=== PATIENT | female | born 1960 | race Two or more races ===

== ENCOUNTER 2024-07-10 16:04 | Emergency (ER) | payer MEDICARE, OTHER ==
[~2024-07-10] VITALS: Ht 167.6 cm; Wt 69.4 kg
[~2024-07-10 16:04] MED LIST: ACE3T PO; ALBU108A5 IN; AZIT-185 PO; PRED20TA2 PO
--- NOTE | 2024-07-10 16:32 | ED.PDOC ---
History of Present Illness HPI Comments 64 year old female presents to the ED with a chief complaint of elevated blood pressure onset today (07/10/24). Patient states she check BP at home this morning 195/95, took both hypertension medication, has not improved BP. Patient is also experiencing headache, nausea. PMHx COPD, sciatica, HTN. Denies head injury, fall, chest pain, shortness of breath, dizziness, blurry vision, vomiting, diarrhea, fever. No other symptoms or modifying factors present at this time. Chief Complaint: High Blood Pressure Time Seen by MD: 16:23 Primary Care Provider: out of area Reviewed Notes: Nurses Notes, Medications, Allergies Allergies: Coded Allergies: NO KNOWN ALLERGIES (Unverified , 07/15/23) Home Meds Active Scripts Acetaminophen W/ Codeine (Tylenol W/Cod #3) 1 Tab Tb, 1 TAB PO Q6HP PRN, #20 TAB Prov:SHAHNAZ CORTES PAC 07/19/23 Prednisone (Prednisone) 20 Mg Tab, 60 MG PO DAILY, #15 MG Prov:RICCI SORIANO 07/15/23 Albuterol Sulfate (Albuterol Sulfate Hfa) 108 Mcg/Act Aer, 108 MCG IN TIDBM, #90 AER Prov:RICCI SORIANO 07/15/23 Azithromycin (ZITHROMAX TABLET) 250 Mg Tb, 250 MG PO DAILY, #6 TAB Prov:RICCI SORIANO 07/15/23 Information Source: Patient Mode of Arrival: Ambulatory Severity: Moderate Timing: Hours Duration: Since onset Prehospital treatment: None Past Medical History PAST MEDICAL HISTORY: Asthma, COPD, HTN Past Medical History (Other): sciatica Surgical History (Other): carpal tunnel surgery 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 Family History Family History: Family hx of heart rachelle, Family hx of stroke Social History Smoker: Cigarettes Alcohol: Occasionally Drugs: Denies Drug Use Lives In: Home Constitutional: denies: chills, diaphoresis, fatigue, fever, malaise, sweats, weakness, others EENTM: denies: blurred vision, double vision, ear bleeding, ear discharge, ear drainage, ear pain, ear ringing, eye pain, eye redness, hearing loss, mouth pa in, mouth swelling, nasal discharge, nose bleeding, nose congestion, nose pain, photophobia, tearing, throat pain, throat swelling, voice changes, others Respiratory: denies: cough, hemoptysis, orthopnea, SOB at rest, shortness of breath, SOB with excertion, stridor, wheezing, others Cardiovascular: reports: others (elevated BP); denies: chest pain, dizzy spells, diaphoresis, Dyspnea on exertion, edema, irregular heart beat, left arm pain, lightheadedness, palpitations, PND, syncope Gastrointestinal: reports: nausea; denies: abdomen distended, abdominal pain, blood streaked bowels, constipated, diarrhea, dysphagia, difficulty swallowing, hematemesis, melena, poor appetite, poor fluid intake, rectal bleeding, rectal pain, vomiting, others Genitourinary: denies: abnormal vagina bleeding, burning, dyspareunia, dysuria, flank pain, frequency, hematuria, incontinence, pain, , vagina discharge, urgency, others Neurological: reports: headache; denies: dizziness, fainting, left sided numbness, left sided weakness, numbness, paresthesia, pre-existing deficit, right sided numbness, right sided weakness, seizure, speech problems, tingling, tremors, weakness, others Musculoskeletal: denies: back pain, gout, joint pain, joint swelling, muscle pain, muscle stiffness, neck pain, others Integumetry: denies: bruises, change in color, change in hair/nails, dryness, laceration, lesions, lumps, rash, wounds, others Allergic/Immunocompromised: denies: Difficulty Healing, Frequent Infections, Hives, Itching, others Hematologic/Lymphatic: denies: anemia, blood clots, easy bleeding, easy bruising, swollen glands, others Endocrine: denies: excessive hunger, excessive sweating, excessive thirst, excessive urination, flushing, intolerance to cold, intolerance to heat, unexplained weight gain, unexplained weight loss, others Psychiatric: denies: anxiety, bipolar disorder, depression, hopeless, panic disorder, schizophrenia, sleepless, suicidal, others All Other Systems: Reviewed and Negative Physical Exam General Appearance: Moderate Distress HEENT: Normal ENT Inspection, Pharynx Normal, TMs Normal Neck: Full Range of Motion, Non-Tender, Normal, Normal Inspection Respiratory: Chest Non-Tender, Lungs Clear, No Accessory Muscle Use, No Respira tory Distress, Normal Breath Sounds Cardiovascular: No Edema, No JVD, No Murmur, No Gallop, Normal Peripheral Pulses, Regular Rate/Rhythm Breast Exam: Deferred Gastrointestinal: No Organomegaly, Non Tender, No Pulsatile Mass, Normal Bowel Sounds, Soft Genitalia: Deferred Pelvic: Deferred Rectal: Deferred Extremities: No calf tenderness, Normal capillary refill, Normal inspection, Normal range of motion, Non-tender, No pedal edema Musculoskeletal : Apperance: Normal Neurologic: Alert, valve technician II-XII nml as Tested, No Motor Deficits, Normal Affect, Normal Mood, No Sensory Deficits Cerebellar Function: Normal Reflexes: Normal Skin: Dry, Normal Color, Warm Lymphatic: No Adenopathy Was a procedure done? Was a procedure done?: No Differential Dx Considerations may include: Acute coronary syndrome, hypertensive urgency, accelerated hypertension X-Ray, Labs, Meds, VS Vital Signs Date Time Temp Pulse Resp B/P (MAP) Pulse Ox O2 Delivery O2 Flow Rate FiO2 07/10/24 18:26 68 18 130/75 (93) 97 07/10/24 18:25 130/75 07/10/24 17:12 98.2 70 18 157/110 (126) 96 98.2 07/10/24 17:12 70 18 96 Room Air 07/10/24 17:10 157/110 07/10/24 16:16 98.3 74 16 179/95 (123) 100 98.3 Lab Test 07/10/24 17:15 Range/Units White Blood Count 8.6 4.4-10.8 10^3/uL Red Blood Count 4.22 4.0-5.20 10^6/uL Hemoglobin 12.9 12.2-16.2 g/dL Hematocrit 37.9 36.0-46.0 % Mean Corpuscular Volume 89.7 80.0-100.0 fL Mean Corpuscular Hemoglobin 30.5 28.0-32.0 pg Mean Corpuscular Hemoglobin Concent 34.0 32.0-36.0 g/dL Red Cell Distribution Width 14.3 11.8-14.3 % Platelet Count 264 140-450 10^3/uL Mean Platelet Volume 7.5 6.9-10.8 fL Neutrophils (%) (Auto) 61.7 37.0-80.0 % Lymphocytes (%) (Auto) 31.2 10.0-50.0 % Monocytes (%) (Auto) 5.2 0.0-12.0 % Eosinophils (%) (Auto) 0.8 0.0-7.0 % Basophils (%) (Auto) 1.1 0.0-2.0 % Neutrophils # (Auto) 5.3 1.6-8.6 10 ^3/uL Lymphocytes # (Auto) 2.7 0.4-5.4 10 ^3/uL Monocytes # (Auto) 0.4 0-1.3 10 ^3/uL Eosinophils # (Auto) 0.1 0-0.8 10 ^3/uL Basophils # (Auto) 0.1 0-0.2 10 ^3/uL Nucleated Red Blood Cells 0.2 % Sodium Level 139 136-145 mmol/L Potassium Level 3.7 3.5-5.1 mmol/L Chloride Level 104 98-107 mmol/L Carbon Dioxide Level 24 20-31 mmol/L Anion Gap 11 5-15 Blood Urea Nitrogen 10 9-23 mg/dL Creatinine 0.72 0.550-1.02 mg/dL Glomerular Filtration Rate Calc 93 >90 mL/min BUN/Creatinine Ratio 13.9 10.0-20.0 Serum Glucose 108 H 74-106 mg/dL Calcium Level 9.7 8.7-10.4 mg/dL Current Medications Medications (Trade) Dose Ordered Sig/Afsaneh Route Start Time Stop Time Status Last Admin Clonidine HCl (Catapres Tablet) 0.2 mg ONCE ONCE PO 07/10/24 16:30 07/10/24 16:31 DC 07/10/24 17:10 PROCEDURE(s): HWOCT - HEAD WITHOUT CONTRAST IMPRESSION: 1. No acute intracranial hemorrhage. 2. Questionable tip mastoiditis on the left 3. Paranasal sinuses appear normal HS:Y The patient's CBC and chemistry panel is within normal limits The patient was given clonidine 0.2 mg by mouth The patient remained symptomatic The patient is being admitted with a diagnosis of accelerated hypertension An IV Hep-Lock was established. Images Reviewed?: Images reviewed and evaluated by me Time of 1ST Reevaluation: 16:55 Reevaluation 1ST: Unchanged Patient Education/Counseling: Diagnosis, Treatment, Prognosis Family Education/Counseling: No Family Present Departure 1 Departure Time of Disposition: 18:45 Impression: Primary Impression: Accelerated hypertension Disposition: 09 ADMITTED INPATIENT Admit to: Tele Condition: Fair Critical Care Note Critical Care Time?: No Stability Stability form required: Yes Unstable for transfer: Telemetry monitoring (Telemetry monitoring required), ED Physician Assesment (Clinical assesment) Heart Score Heart Score: Heart Score Response (Comments) Value History N/A 0 EKG N/A 0 Age N/A 0 Risk Factors N/A 0 Troponin N/A 0 Total 0 I personally scribed for CECELIA SÁNCHEZ MD ([email or web address]) on 07/10/24 at 16:32. Electronically submitted by Yolanda Severino ([email or web address]). I personally scribed for CECELIA SÁNCHEZ MD ([email or web address]) on 07/10/24 at 17:49. Electronically submitted by Yolanda Severino ([email or web address]). CECELIA SÁNCHEZ MD Jul 10, 2024 16:32
[2024-07-10] MEDS: cloNIDine HCL 0.1 MG TAB PO ONE (17:10)
--- NOTE | 2024-07-10 17:19 | DVH ---
EXAM: CT HEAD WITHOUT CONTRAST INDICATION: DUMONT TECHNIQUE: CT of the head without intravenous contrast. Radiation Dose Information: CT Dose: CTDI volume is 52.84 mGy. Dose-length product is 847.12 mGy*cm The dose indicators for CT are the volume Computed Tomography (CT) Dose Index (CTDIvol) and the Dose Length Product (DLP), and are measured in units of mGy and mGy-cm, respectively. These indicators are not patient dose, but values generated from the CT scanner acquisition factors. The report includes radiation exposure data for exposures received during this examination. COMPARISON: CT HEAD WITHOUT CONTRAST on DOS: 07/18/23 FINDINGS: There is no evidence of acute intracranial hemorrhage, extra-axial collection, mass effect, midline s hift, herniation or hydrocephalus. The ventricles, sulci and cisterns are age appropriate. Opacified air cell tip of the left mastoids correlate for possible tip mastoiditis on the left. The alas-white differentiation is intact. Patchy periventricular and subcortical white matter hypoattenuation is nonspecific but may be related to small vessel ischemic disease. The visualized paranasal sinuses and mastoid air cells are clear. The surrounding soft tissues and osseous structures are unremarkable. IMPRESSION: 1. No acute intracranial hemorrhage. 2. Questionable tip mastoiditis on the left 3. Paranasal sinuses appear normal HS:Y
[2024-07-10 17:50] LABS: Basophils # (auto) 0.1 10 ^3/uL (0-0.2); Basophils % (auto) 1.1 % (0.0-2.0); Eosinophils # (auto) 0.1 10 ^3/uL (0-0.8); Eosinophils % (auto) 0.8 % (0.0-7.0); Hematocrit 37.9 % (36.0-46.0); Hemoglobin 12.9 g/dL (12.2-16.2); Lymphocytes # (auto) 2.7 10 ^3/uL (0.4-5.4); Lymphocytes % (auto) 31.2 % (10.0-50.0); Mean Corpuscular Hemoglobin 30.5 pg (28.0-32.0); Mean Corpuscular Volume 89.7 fL (80.0-100.0); Monocytes # (auto) 0.4 10 ^3/uL (0-1.3); Monocytes % (auto) 5.2 % (0.0-12.0); Neutrophils # (auto) 5.3 10 ^3/uL (1.6-8.6); Neutrophils % (auto) 61.7 % (37.0-80.0); Nucleated Red Blood Cells % 0.2 %; Platelet Count (auto) 264 10^3/uL (140-450); Red Blood Cells 4.22 10^6/uL (4.0-5.20); Red Cell Distribution Width 14.3 % (11.8-14.3); White Blood Cell 8.6 10^3/uL (4.4-10.8)
[2024-07-10 18:03] LABS: Chloride 104 mmol/L (98-107); Potassium 3.7 mmol/L (3.5-5.1); Sodium 139 mmol/L (136-145)
[2024-07-10 18:04] LABS: Anion Gap 11 (5-15); Calcium 9.7 mg/dL (8.7-10.4); Carbon Dioxide 24 mmol/L (20-31)
[2024-07-10 18:09] LABS: BUN/Creatinine Ratio 13.9 (10.0-20.0); Blood Urea Nitrogen 10 mg/dL (9-23)
[2024-07-10 18:11] LABS: Glucose 108 mg/dL (74-106)
[2024-07-10 19:03] VITALS: PULSE 75; RESP 16; O2SAT 99
[2024-07-10] MEDS: hydrALAZINE HCL 20 MG/ML VL IV ONE (19:05)
[2024-07-10 19:18] VITALS: BP 130/73; PULSE 62; RESP 18; TEMP 98; O2SAT 98
== END 2024-07-10 19:26 | disposition home or self-care (01) ==
LOC: ER 16:04
DX: I10 Essential (primary) hypertension (principal); J44.9 Chronic obstructive pulmonary disease, unspecified; F17.210 Nicotine dependence, cigarettes, uncomplicated; Z79.899 Other long term (current) drug therapy; Z98.890 Other specified postprocedural states
CPT/HCPCS: 36415; 70450; 80048; 85025

== ENCOUNTER 2024-08-26 13:24 | Emergency (ER) | payer MEDICARE, OTHER ==
[~2024-08-26] VITALS: Ht 167.6 cm; Wt 67.2 kg
[2024-08-26 14:37] VITALS: BP 167/89; PULSE 69; RESP 16; TEMP 99.3; O2SAT 99
--- NOTE | 2024-08-26 14:46 | ED.PDOC ---
History of Present Illness HPI Comments A 64 YEAR OLD FEMALE PRESENTS TO THE ED WITH COMPLAINT OF LUMP OF BILATERAL WRISTS. PATIENT STATES SHE HAS HAD LUMPS ON HER BILATERAL WRIST FOR THE PAST 4 DAYS. PATIENT ALSO NOTES SHE HAS A HISTORY OF CARPAL TUNNEL SYNDROME. PATIENT DENIES FEVER, CHILLS, SHORTNESS OF BREATH, CHEST PAIN, ABDOMINAL PAIN, NAUSEA, VOMITING, HEADACHE, OR OTHER COMPLAINTS. NO OTHER SYMPTOMS OR MODIFYING FACTORS AT THIS TIME. PATIENT IS ALERT, ORIENTED X 4, AND HAS STEADY GAIT. Chief Complaint: Upper Extremity Time Seen by MD: 13:39 Primary Care Provider: out of area Reviewed Notes: Nurses Notes, Medications, Allergies Allergies: Coded Allergies: NO KNOWN ALLERGIES (Unverified , 07/15/23) Home Meds Active Scripts Acetaminophen W/ Codeine (Tylenol W/Cod #3) 1 Tab Tb, 1 TAB PO Q6HP PRN, #20 TAB Prov:SHAHNAZ CORTES PAC 07/19/23 Prednisone (Prednisone) 20 Mg Tab, 60 MG PO DAILY, #15 MG Prov:RICCI SORIANO 07/15/23 Albuterol Sulfate (Albuterol Sulfate Hfa) 108 Mcg/Act Aer, 108 MCG IN TIDBM, #90 AER Prov:RICCI SORIANO 07/15/23 Azithromycin (ZITHROMAX TABLET) 250 Mg Tb, 250 MG PO DAILY, #6 TAB Prov:RICCI SORIANO 07/15/23 Information Source: Patient Mode of Arrival: Ambulatory Severity: Mild Timing: Days Duration: Since onset, Days Prehospital treatment: None Medication Refill: For: Other (GANGLION CYST OF BILATERAL WRISTS) Past Medical History PAST MEDICAL HISTORY: Asthma, COPD, HTN Past Medical History (Other): CARPAL TUNNEL SYNDROME Surgical History: Denies all surgeries 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 Family History Family History: Reviewed,noncontributory to illness, Family hx of heart rachlele, Family hx of stroke Social History Smoker: Cigarettes Alcohol: Occasionally Drugs: Denies Drug Use Lives In: Home Constitutional: reports: others (ANXIOUS ); denies: chills, diaphoresis, fatigue, fever, malaise, sweats, weakness EENTM: denies: blurred vision, double vision, ear bleeding, ear discharge, ear drainage, ear pain, ear ringing, eye pain, eye redness, hearing loss, mouth pain, mouth swelling, nasal discharge, nose bleeding, nose congestion, nose pain, photophobia, tearing, throat pain, throat swelling, voice changes, others Respiratory: denies: cough, hemoptysis, orthopnea, SOB at rest, shortness of breath, SOB with excertion, stridor, wheezing, others Cardiovascular: denies: chest pain, dizzy spells, diaphoresis, Dyspnea on exertion, edema, irregular heart beat, left arm pain, lightheadedness, palpitations, PND, syncope, others Gastrointestinal: denies: abdomen distended, abdominal pain, blood streaked bowels, constipated, diarrhea, dysphagia, difficulty swallowing, hematemesis, melena, nausea, poor appetite, poor fluid intake, rectal bleeding, rectal pain, vomiting, others Genitourinary: denies: abnormal vagina bleeding, burning, dyspareunia, dysuria, flank pain, frequency, hematuria, incontinence, pain, , vagina discharge, urgency, others Neurological: denies: dizziness, fainting, headache, left sided numbness, left sided weakness, numbness, paresthesia, pre-existing deficit, right sided numbness, right sided weakness, seizure, speech problems, tingling, tremors, weakness, others Musculoskeletal: reports: others (LUMP OF BILATERAL WRIST); denies: back pain, gout, joint pain, joint swelling, muscle pain, muscle stiffness, neck pain Integumetry: denies: bruises, change in color, change in hair/nails, dryness, laceration, lesions, lumps, rash, wounds, others Allergic/Immunocompromised: denies: Difficulty Healing, Frequent Infections, Hives, Itching, others Hematologic/Lymphatic: denies: anemia, blood clots, easy bleeding, easy bruising, swollen glands, others Endocrine: denies: excessive hunger, excessive sweating, excessive thirst, excessive urination, flushing, intolerance to cold, intolerance to heat, unexp lained weight gain, unexplained weight loss, others Psychiatric: denies: anxiety, bipolar disorder, depression, hopeless, panic disorder, schizophrenia, sleepless, suicidal, others All Other Systems: Reviewed and Negative Physical Exam General Appearance: No Apparent Distress, Normal HEENT: Normal ENT Inspection, PERRL/EOMI, Pharynx Normal, TMs Normal Neck: Full Range of Motion, Non-Tender, Normal, Normal Inspection Respiratory: Chest Non-Tender, Lungs Clear, No Accessory Muscle Use, No Resp iratory Distress, Normal Breath Sounds Cardiovascular: No Edema, No JVD, No Murmur, No Gallop, Normal Peripheral Pulses, Regular Rate/Rhythm Breast Exam: Deferred Gastrointestinal: No Organomegaly, Non Tender, No Pulsatile Mass, Normal Bowel Sounds, Soft Genitalia: Deferred Pelvic: Deferred Rectal: Deferred Extremities: No calf tenderness, Normal capillary refill, Normal range of motion, Non-tender, No pedal edema, Other (TWO SMALL GANGLION CYST ON BILATERAL VOLAR WRIST, NO TENDERNESS AND SWELLING. ) Musculoskeletal : Apperance: Normal Neurologic: Alert, meter repairer II-XII nml as Tested, No Motor Deficits, Normal Affect, Normal Mood, No Sensory Deficits Cerebellar Function: Normal Reflexes: Normal Skin: Dry, Normal Color, Warm, Other (2CM GANGLION ON LEFT VOLAR CYST, 1CM GANGLION ON RIGHT VOLAR CYST, NO TENDERNESS AND SWELLING, NO INFECTION SIGNS. ) Peripheral Pulses: 2+ carotid (R), 2+ carotid (L), 2+ Radial (R), 2+ Radial (L) Lymphatic: No Adenopathy Was a procedure done? Was a procedure done?: No Differential Dx Considerations may include: GANGLION CYST, SOFT TISSUE INFECTION, CARPAL TUNNEL SYNDROME X-Ray, Labs, Meds, VS Vital Signs Date Time Temp Pulse Resp B/P (MAP) Pulse Ox O2 Delivery O2 Flow Rate FiO2 08/26/24 14:37 99.3 69 16 167/89 (115) 99 99.3 08/26/24 14:37 69 16 99 Room Air 08/26/24 13:33 99.3 69 16 167/89 (115) 99 99.3 X-Ray, Labs, Meds, VS Comment EXTERNAL MEDICAL RECORDS REVIEWED: [NONE] INDEPENDENT HISTORIANS: [NONE] SOCIAL DETERMINANTS OF HEALTH: [NONE] LABS ORDERED: NONE REVIEWED AND INTERPRETED RESULTS: NONE IMAGING ORDERED: NONE TREATMENTS ORDERED: NONE PROCEDURES PERFORMED: NONE CRITICAL CARE TIME: NONE I HAVE DISCUSSED THE PATIENT WITH THE ATTENDING PHYSICIAN DR. SÁNCHEZ AND HE AGREES WITH THE PATIENT'S PLAN OF CARE AND DISPOSITION. BASED ON HISTORY OF PRESENT ILLNESS, AND PHYSICAL EXAM, PATIENT WILL BE DISCHARGED HOME. SHARED DECISION MAKING: PATIENT INSTRUCTED TO FOLLOW UP WITH PRIMARY CARE PROVIDER IN 1-2 DAYS FOR RE-EVALUATION OF SYMPTOMS. PATIENT VERBALIZES UNDERSTANDING TO RETURN TO ED FOR NEW OR WORSENING SYMPTOMS OR IF FOLLOW UP WITH PCP CANNOT BE OBTAINED. PATIENT FEELS COMFORTABLE GOING HOME AT THIS TIME. ALL QUESTIONS ADDRESSED AT TIME OF DISCHARGE. Time of 1ST Reevaluation: 14:57 Reevaluation 1ST: Improved Patient Education/Counseling: Diagnosis, Treatment, Need For Follow Up Family Education/Counseling: Diagnosis, Treatment, Need For Follow Up Medical Screening: No EMC Exist At This Time Departure 1 Departure Time of Disposition: 15:00 Impression: Primary Impression: Ganglion cyst of both wrists Disposition: 01 HOME / SELF CARE / HOMELESS Condition: Stable Additional Instructions: FOLLOW-UP WITH PCP IN 1 TO 2 DAYS FOR REFERRAL TO [facility]. RETURN TO ED FOR ANY NEW OR WORSENING SYMPTOMS. Discharged With: Self Critical Care Note Critical Care Time?: No Stability Stability form required: No I personally scribed for RICCI SORIANO ([email or web address]) on 08/26/24 at 14:45. Electronically submitted by Florentin Boateng ([email or web address]). RICCI SORIANO August 26, 2024 14:45
== END 2024-08-26 14:55 | disposition home or self-care (01) ==
LOC: ER 13:24
DX: M67.432 Ganglion, left wrist (principal); M67.431 Ganglion, right wrist; I10 Essential (primary) hypertension; J44.9 Chronic obstructive pulmonary disease, unspecified; F17.210 Nicotine dependence, cigarettes, uncomplicated; Z79.52 Long term (current) use of systemic steroids; Z79.899 Other long term (current) drug therapy

== ENCOUNTER 2024-09-03 04:58 | Emergency (ER) | payer MEDICARE, OTHER ==
[~2024-09-03] VITALS: Ht 167.6 cm; Wt 69.3 kg
--- NOTE | 2024-09-03 05:18 | ED.PDOC ---
HPI Allergic reaction HPI Comments 64-year-old female who came to ER for allergic reaction. Patient states she noted pruritic generalized maculopapular rashes that started yesterday morning, which progressively worsened despite taking Benadryl. She denies any throat pain, throat swelling, shortness a breath or wheezing. Patient unsure where she got the rash is from, possibly from yardwork the day before, no one at home has similar symptoms. No similar rash in the past. Chief Complaint: Allergic Reaction Time Seen by MD: 05:16 Primary Care Provider: out of area Reviewed Notes: Nurses Notes Allergies: Coded Allergies: Shellfish Allergy (Verified Allergy, Severe, 09/03/24) Home Meds Active Scripts Diphenhydramine Hcl (Benadryl Allergy) 25 Mg Tab, 25 MG PO TIDPRN PRN for 5 Days, #15 TAB Prov:ADAM DIAZ MD 09/03/24 Loratadine (Claritin) 10 Mg Tab, 10 MG PO DAILY for 7 Days, #7 TAB Prov:ADAM DIAZ MD 09/03/24 Prednisone (Prednisone) 20 Mg Tab, 20 MG PO DAILY for 4 Days, #4 MG Start on 09/04/2024 Prov:ADAM DIAZ MD 09/03/24 Acetaminophen W/ Codeine (Tylenol W/Cod #3) 1 Tab Tb, 1 TAB PO Q6HP PRN, #20 TAB Prov:SHAHNAZ CORTES PAC 07/19/23 Albuterol Sulfate (Albuterol Sulfate Hfa) 108 Mcg/Act Aer, 108 MCG IN TIDBM, #90 AER Prov:RICCI SORIANO 07/15/23 Azithromycin (ZITHROMAX TABLET) 250 Mg Tb, 250 MG PO DAILY, #6 TAB Prov:RICCI SORIANO 07/15/23 Information Source: Patient Mode of Arrival: Ambulatory Severity: Moderate Rash: Moderate SOB: None Difficulty swallowing: None Pruritus: Moderate Timing: Hours Duration: Since onset Prehospital treatment: Treatment (Benadryl) Location: Generalized Exposed to: Unknown Developed: Pruritus, Rash History of: Urticaria Modyifying Factors: Diphenhydramine Associated Sign and Symptoms: None Review of Systems REVIEW OF SYSTEMS: No fever, no chills, or fatigue HEENT: No sore throat, no earache, no congestion, no neck pain. Cardiac: No chest pain. No palpitations. Lungs: No shortness of breath, no cough. GI: No nausea, no vomiting, no diarrhea, no constipation, no abdominal pain : No dysuria, frequency, or urgency. No hematuria. Musculoskeletal: No joint pain , no joint swelling, no extremity edema. Skin: (+) rash, (+) itching. Neuro: No headache, no dizziness, no weakness Vital Signs Vital Signs Date Time Temp Pulse Resp B/P (MAP) Pulse Ox O2 Delivery O2 Flow Rate FiO2 09/03/24 06:00 Room Air* 0 21 09/03/24 06:00 98.4 87 16 150/80 (103) 97 98.4 Physical Exam General: Awake, alert and oriented. No acute distress. Skin: Generalized macular, erythematous rash over chest, upper extremities, abdomen. HEENT: The head is normocephalic and atraumatic. Conjunctivae are clear without exudates or hemorrhage. Sclera is non-icteric. No posterior pharyngeal erythema or edema Neck: Normal range of motion. No JVD. Cardiac: Regular rate Respiratory: No signs of respiratory distress. No Stridor. No wheezing or rhonchi. Extremities: Upper and lower extremities are atraumatic in appearance without deformity. Neurological: The patient is awake, alert and oriented to person, place, and time with normal speech. Speech is clear. There is no facial asymmetry. Psychiatric: Appropriate mood and affect. Good judgement and insight. Past Medical History PAST MEDICAL HISTORY: Asthma, COPD, HTN Surgical History: Denies all surgeries DIRECTOR OF EDUCATION History: Ectopic Family History Family History: Reviewed,noncontributory to illness, Family hx of heart rachelle, Family hx of stroke Social History Smoker: Cigarettes Alcohol: Occasionally Drugs: Denies Drug Use Lives In: Home Was a procedure done? Was a procedure done?: No Differential diagnosis (all) Differential Diagnosis: Anaphylaxis, Angioedema, Contact Dermatitis, Urticaria, Other (Infectious process, parasitic infection, insect bites, hematologic condition, autoimmune condition, rheumatologic condition, other) X-Ray, Labs, Meds, VS Vital Signs Date Time Temp Pulse Resp B/P (MAP) Pulse Ox O2 Delivery O2 Flow Rate FiO2 09/03/24 06:00 Room Air* 0 21 09/03/24 06:00 98.4 87 16 150/80 (103) 97 98.4 09/03/24 05:00 98.4 87 16 156/82 (106) 97 98.4 09/03/24 05:00 16 97 Room Air* 0 21 Current Medications Medications (Trade) Dose Ordered Sig/Afsaneh Route Start Time Stop Time Status Last Admin Prednisone 40 mg ONCE ONCE PO 09/03/24 05:15 09/03/24 05:16 DC 09/03/24 05:33 Diphenhydramine HCl (Benadryl Liquid) 25 mg ONCE ONCE PO 09/03/24 05:15 09/03/24 05:16 DC 09/03/24 05:33 Famotidine (Pepcid Tablet) 20 mg ONCE ONCE PO 09/03/24 05:15 09/03/24 05:16 DC 09/03/24 05:32 Time of 1ST Reevaluation: 05:14 Reevaluation 1ST: Unchanged Patient Education/Counseling: Need For Follow Up Family Education/Counseling: No Family Present Departure 1 Departure Time of Disposition: 05:43 Impression: Primary Impression: Allergic reaction Disposition: HOME / SELF CARE / HOMELESS Condition: Stable Additional Instructions: ED DISCHARGE INSTRUCTIONS Instructions: Please read all instructions provided in this packet carefully. Although you have been discharged from the Emergency Department, this does not mean that you have a "clean bill of health". No definitive diagnosis for your symptoms has been made today. It is possible that you are in the process of developing a serious illness. This is why you must return to the ED without fail if any new or worsening symptoms (especially if your symptoms include chest pain, trouble breathing, abdominal pain, fever, headache, confusion, trouble seeing, or trouble walking) It is also very important that you see a primary care doctor within the next 1-3 days to follow up. If you are unable to get an appointment, return to the ED for re-evaluation. Allergic Reaction: Care Instructions An allergic reaction is an excessive response from your immune system to a medicine, chemical, food, insect bite, or other substance. A reaction can range from mild to life-threatening. Some people have a mild rash, hives, and itching or stomach cramps. In severe reactions, swelling of your tongue and throat can close up your airway so that you cannot breathe. Follow-up care is a jon part of your treatment and safety. Be sure to make and go to all appointments, and call your doctor if you are having problems. It's also a good idea to know your test results and keep a list of the medicines you take. How can you care for yourself at home? If you know what caused your allergic reaction, be sure to avoid it. Your allergy may become more severe each time you have a reaction. Take an [id number] antihistamine, such as cetirizine (Zyrtec) or loratadine (Claritin), to treat mild symptoms. Read and follow directions on the label. Some antihistamines can make you feel sleepy. Do not give antihistamines to a child unless you have checked with your doctor first. Mild symptoms include sneezing or an itchy or runny nose; an itchy mouth; a few hives or mild itching; and mild nausea or stomach discomfort. Do not scratch hives or a rash. Put a cold, moist towel on them or take cool baths to relieve itching. Put ice packs on hives, swelling, or insect stings for 10 to 15 minutes at a time. Put a thin cloth between the ice pack and your skin. Do not take hot baths or showers. They will make the itching worse. Your doctor may prescribe an epinephrine medicine, such as an epinephrine shot or nasal spray, to carry with you in case you have a severe reaction. Learn how to give yourself the medicine and keep it with you at all times. Make sure it is not . Go to the emergency room every time you have a severe reaction, even if you have used your epinephrine medicine and are feeling better. Symptoms can come back after using the medicine. Wear medical alert jewelry that lists your allergies. You can buy this at most [employer]. When should you call for help? Use an epinephrine medicine, such as an epinephrine shot or nasal spray, if: You think you are having a severe allergic reaction. You have symptoms in more than one body area, such as mild nausea and an itchy mouth. After giving an epinephrine medicine, call 911, even if you feel better. Call 911 anytime you think you may need emergency care. For example, call if: You have symptoms of a severe allergic reaction. These may include: Sudden raised, red areas (hives) all over your body. Swelling of the throat, mouth, lips, or tongue. Trouble breathing. Passing out (losing consciousness). Or you may feel very lightheaded or suddenly feel weak, confused, or restless. Severe belly pain, nausea, vomiting, or diarrhea. Call your doctor now or seek immediate medical care if: You have symptoms of an allergic reaction, such as: A rash or hives (raised, red areas on the skin). Itching. Swelling. Mild belly pain or nausea. Watch closely for changes in your health, and be sure to contact your doctor if: You do not get better as expected. Credits for Allergic Reaction: Care Instructions Current as of: February 19, 2024 Author: [facility] Staff Clinical Review Board All [facility] education is reviewed by a team that includes physicians, nurses, advanced practitioners, registered dieticians, and other healthcare professionals. e-Prescriptions Diphenhydramine Hcl (Benadryl Allergy) 25 Mg Tab 25 MG PO TIDPRN PRN for 5 Days, #15 TAB Prov: ADAM DIAZ MD 09/03/24 Loratadine (Claritin) 10 Mg Tab 10 MG PO DAILY for 7 Days, #7 TAB Prov: ADAM DIAZ MD 09/03/24 Prednisone (Prednisone) 20 Mg Tab 20 MG PO DAILY for 4 Days, #4 MG Start on 09/04/2024 Prov: ADAM DIAZ MD 09/03/24 Comments 64-year-old female with several hours of pruritic, hive-like rash. No respiratory or oral symptoms. Patient felt stable for discharge home with steroids, antihistamines and prompt follow up with the PCP. She is advised to return to the emergency department with any new, worsening or concerning symptoms. I reviewed the following notes from the pt's past medical encounters: N/A The following tests were ordered, and results were reviewed by me: (See diagnostic results section) The following test were independently interpreted by me: N/A Additional information was gathered from interviewing the following independent historians: N/A I reviewed and agreed with the following test results read by other providers: N/A I discussed treatments with patient Decision regarding hospitalization or escalation of hospital level of care: Risks and benefits of admission for further treatment of patient's condition was considered however due to patient's stable condition patient will be discharged to follow up closely or return to care for worsening of condition or inability to follow up. Critical Care Note Critical Care Time?: No Stability Stability form required: No Heart Score Heart Score: Heart Score Response (Comments) Value History N/A 0 EKG N/A 0 Age N/A 0 Risk Factors N/A 0 Troponin N/A 0 Total 0 I personally scribed for ADAM DIAZ MD ([email or web address]) on 09/03/24 at 05:18. Electronically submitted by Austin Mcintyre ([email or web address]). ADAM DIAZ MD September 03, 2024 05:18
[2024-09-03] MEDS: FAMOTIDINE 20 MG TAB PO ONE (05:32)
[2024-09-03] MEDS: diphenhdrAMINE HCL 12.5 MG/5 ML UD PO ONE (05:33)
[2024-09-03] MEDS: predniSONE 20 MG TAB PO ONE (05:33)
[2024-09-03] MEDS ORDERED: LORA-622 PO (05:45)
[2024-09-03] MEDS ORDERED: PRED20TA2 PO (05:45)
[2024-09-03] MEDS ORDERED: DIPH25TA54 PO (05:46)
[2024-09-03 06:00] VITALS: BP 150/80; PULSE 87; RESP 16; TEMP 98.4; O2SAT 97
== END 2024-09-03 06:11 | disposition home or self-care (01) ==
LOC: ER 04:58
DX: T78.40XA Allergy, unspecified, initial encounter (principal); R21 Rash and other nonspecific skin eruption; L29.9 Pruritus, unspecified; I10 Essential (primary) hypertension; J44.9 Chronic obstructive pulmonary disease, unspecified; F17.210 Nicotine dependence, cigarettes, uncomplicated; Z79.52 Long term (current) use of systemic steroids; Z79.899 Other long term (current) drug therapy; Z91.013 Allergy to seafood
CPT/HCPCS: 99284; J7512